=== PATIENT | female | born 1995 | race African-American/Black ===

== ENCOUNTER 2016-11-11 16:11 | Emergency (ER) | payer BC ==
[~2016-11-11] VITALS: Ht 154.9 cm; Wt 66.4 kg
[~2016-11-11 16:11] MED LIST: ACET-1256 PO; CIPR-255 PO; IBUP-1459 PO
[2016-11-11 16:20] VITALS: Ht 154.9 cm; Wt 66.4 kg
[2016-11-11] MEDS ORDERED: ONDANSETRON INJ 2 MG/ML 2 ML VIAL IV STA (17:41)
[2016-11-11] MEDS ORDERED: SODIUM CHLORIDE 0.9% 1000ML 1,000 ML IV STA (17:41)
[2016-11-11] MEDS ORDERED: ACETAMINOPHEN 500 MG TAB PO STA (17:41)
[2016-11-11] MEDS ORDERED: SODIUM CHLORIDE 0.9% 500ML 500 ML IV STA (17:41)
[2016-11-11] MEDS ORDERED: LORAZEPAM 2 MG/ML 1 ML VIAL IV STA (17:41)
[2016-11-11] MEDS ORDERED: AMPICILLIN/SULBACTAM SOD INJ 3,000 MG in SODIUM CHLORIDE 0.9% 100ML 100 ML IV ONE (17:45)
[2016-11-11] MEDS ORDERED: LIDO/EPINEPHRINE/SOD BICARB 20 ML VIAL INFIL ONE (17:45)
[2016-11-11] MEDS ORDERED: MoRPHine SULFATE 4 MG/ML 1 ML CARP\\VIAL IV PRN (17:45)
--- NOTE | 2016-11-11 17:51 | EMERGENCY ROOM VISIT NOTE ---
History Report prepared by Bennett: Reagan Garcia Under the Supervision of: Dr. Aakash Lance M.D. First contact with patient: 17:33 Chief Complaint: OTHER COMPLAINT Stated Complaint: SEVERE SWELLING History of Present Illness The patient is a 21 year old female who presents to the Emergency Room with complaints of a worsening pilonidal cyst beginning one week prior to arrival. She currently rates her discomfort as a 10/10 in severity. The patient associates an intermittent fever for four days with today's symptoms. She states she took Motrin three hours ago. The patient notes she has had this cyst for a couple of years, and the surgeon has said to wait for surgery. She denies her cyst ever being drained in the past. The patient denies the cyst draining over the past couple of days. She notes she was seen at a hospital in [place] three days ago, in which, she was prescribed Bactrim and Percocet. As per mother, the patient had blood work, a urinalysis, and a CT at the hospital. The patient denies kidney, liver, lung, or spleen problems. 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 A total of 10 systems reviewed and were otherwise negative. Past Medical & Surgical Surgical Problems: (1) S/P eye surgery (2) S/P removal of thyroid nodule Family History Cancer Diabetes mellitus FH: heart disease Hypertension Social History Smoking Status: Never Smoker Drug Use: none Marital Status: single Housing Status: lives with roommate Occupation Status: [employer] student Current/Historical Medications Scheduled Amoxicillin & Pot Clavulanate (Augmentin 875-125 mg), 875 MG PO BID Control Pills ( Control Pills), 1 TAB PO DAILY Sulfa/Trimethoprim (Bactrim Ds 800MG/160MG), 1 TAB PO BID Valacyclovir (Valtrex), 500 MG PO DAILY Scheduled PRN Ibuprofen Tab (Advil), 200 MG PO UD PRN for Pain or Fever Oxycodone/Acetaminophen 5MG/325MG (Percocet 5MG/325MG), 1 TABLET PO Q6H PRN for Moderate Pain Allergies Coded Allergies: No Known Allergies (Unverified , 01/13/16) Physical Exam Vital Signs Date Time Temp Pulse Resp B/P Pulse Ox O2 Delivery O2 Flow Rate FiO2 11/11/16 20:16 37.8 81 18 111/75 99 11/11/16 20:16 37.8 81 18 111/75 99 Room Air 11/11/16 18:17 84 18 109/72 11/11/16 16:20 38.2 145 20 110/69 99 Room Air Physical Exam GENERAL: Patient is in no acute distress. HEENT: No acute trauma, normocephalic atraumatic, mucous membranes moist, no nasal congestion, no scleral icterus. NECK: No stridor, no adenopathy, no meningismus, trachea is midline. LUNGS: Clear to auscultation bilaterally, no wheeze, no rhonchi, breath sounds equal. HEART: Mildly tachycardic without any murmurs. There is a regular rhythm. ABDOMEN: Soft, nontender, bowel sounds positive, no hernias, no peritonitis. BUTTOCK: Large midline pilonidal abscess. There is erythema, fluctuance, and tenderness. It is along the superior portion of the buttock crease. EXTREMITIES: No cyanosis or edema, full range of motion of all the joints without pain or difficulty, no signs for acute trauma. NEUROLOGIC: Oriented x 3, no acute motor or sensory deficits, no focal weakness. SKIN: No rash, no jaundice, no diaphoresis. Medical Decision & Procedures Laboratory Results 11/11/16 17:55 Red Blood Count 4.14, Mean Corpuscular Volume 87.2, Mean Corpuscular Hemoglobin 30.2, Mean Corpuscular Hemoglobin Concent 34.6, Mean Platelet Volume 10.3, Neutrophils (%) (Auto) 88.3, Lymphocytes (%) (Auto) 6.5, Monocytes (%) (Auto) 4.7, Eosinophils (%) (Auto) 0.1, Basophils (%) (Auto) 0.1, Neutrophils # (Auto) 13.76, Lymphocytes # (Auto) 1.01, Monocytes # (Auto) 0.74, Eosinophils # (Auto) 0.01, Basophils # (Auto) 0.02 11/11/16 17:55 Test 11/11/16 17:55 White Blood Count 15.59 K/uL (4.8-10.8) Red Blood Count 4.14 M/uL (4.2-5.4) Hemoglobin 12.5 g/dL (12.0-16.0) Hematocrit 36.1 % (37-47) Mean Corpuscular Volume 87.2 fL (80-100) Mean Corpuscular Hemoglobin 30.2 pg (25-34) Mean Corpuscular Hemoglobin Concent 34.6 g/dl (32-36) Platelet Count 299 K/uL (130-400) Mean Platelet Volume 10.3 fL (7.4-10.4) Neutrophils (%) (Auto) 88.3 % Lymphocytes (%) (Auto) 6.5 % Monocytes (%) (Auto) 4.7 % Eosinophils (%) (Auto) 0.1 % Basophils (%) (Auto) 0.1 % Neutrophils # (Auto) 13.76 K/uL (1.4-6.5) Lymphocytes # (Auto) 1.01 K/uL (1.2-3.4) Monocytes # (Auto) 0.74 K/uL (0.11-0.59) Eosinophils # (Auto) 0.01 K/uL (0-0.5) Basophils # (Auto) 0.02 K/uL (0-0.2) RDW Standard Deviation 41.5 fL (36.4-46.3) RDW Coefficient of Variation 12.9 % (11.5-14.5) Immature Granulocyte % (Auto) 0.3 % Immature Granulocyte # (Auto) 0.05 K/uL (0.00-0.02) Anion Gap 11.0 mmol/L (3-11) Est Creatinine Clear Calc Drug Dose 85.2 ml/min Estimated GFR () 104.5 Estimated GFR (Non- 90.2 BUN/Creatinine Ratio 8.3 (10-20) Calcium Level 9.0 mg/dl (8.5-10.1) Laboratory results reviewed by me. Medications Administered Medications (Trade) Dose Ordered Sig/Angeline Route Start Time Stop Time Status Last Admin Dose Admin Ampicillin Sodium/ Sulbactam Sodium 3000 mg/Sodium Chloride 108 ml @ 200 mls/hr ONE ONCE IV 11/11/16 17:45 11/11/16 18:17 DC 11/11/16 19:03 200 MLS/HR Sodium Chloride 500 ml @ 999 mls/hr Q31M STAT IV 11/11/16 17:41 11/11/16 18:11 DC 11/11/16 18:12 999 MLS/HR Sodium Chloride (Nss 1000ml) 1,000 ml @ 125 mls/hr Q8H STAT IV 11/11/16 17:41 11/11/16 21:36 DC 11/11/16 18:12 125 MLS/HR Acetaminophen (Tylenol Tab) 1,000 mg NOW STAT PO 11/11/16 17:41 11/11/16 17:45 DC 11/11/16 18:13 1,000 MG Lidocaine/ Epinephrine (Buffered Xylocaine/ Epinephrine 1% Inj) 20 ml NOW ONCE INFIL 11/11/16 17:45 11/11/16 17:46 DC 11/11/16 18:08 20 ML Morphine Sulfate (MoRPHine SULFATE INJ) 4 mg Q15M PRN IV 11/11/16 17:45 11/11/16 21:36 DC 11/11/16 18:07 4 MG Lorazepam (Ativan Inj) 0.5 mg NOW STAT IV 11/11/16 17:41 11/11/16 17:45 DC 11/11/16 18:16 0.5 MG Ondansetron HCl (Zofran Inj) 4 mg NOW STAT IV 11/11/16 17:41 11/11/16 17:45 DC 11/11/16 18:08 4 MG Oxycodone HCl (Roxicodone Immediate Rel 5MG Home Pack) 1 homepack UD ONCE PO 11/11/16 20:00 11/11/16 20:01 DC 11/11/16 20:15 1 HOMEPACK Procedure Incision & Drainage Indication: Abscess. Location: Buttock Verbal consent was obtained after the risks and benefits were explained, including but not limited to bleeding, scarring, infection, pain, and bone/joint /nerve damage. At this time, the risks of the procedure are less than the risks of NOT performing the procedure. A time out was taken and the correct patient and site identified. The skin was prepped with betadine and a sterile field set. The wound was anesthetized with 10 ccs ml of 1% lidocaine with epinephrine. The abscess cavity was entered with a number 11 blade and purulent , foul smelling material expressed. Copious irrigation was performed using saline. The wound was explored for loculations and none found. Debridement was not performed. Packing placed and a sterile dressing applied. Detailed wound care instructions and signs and symptoms of worsening infection reviewed with the patient. No complications and the patient tolerated the procedure well. ED Course 1735: The patient was evaluated in room C4. A complete history and physical exam was performed. 1740: Ordered Zofran Inj 4 mg IV, Ativan Inj 0.5 mg IV, Tylenol Tab 1,000 mg PO , Sodium Chloride 1,000 ml @ 125 mls/hr IV, Sodium Chloride 500 ml @ 999 mls/hr IV. 1744: Ordered Morphine Sulfate 4 mg IV, Lidocaine/Epinephrine 20 ml INFIL, Ampicillin Sodium/Sulbactam Sodium 3,000 mg/Sodium Chloride 108 ml @ 200 mls/hr IV. 1999: Ordered Oxycodone HCl 1 homepack PO. 2004: Reevaluated the patient. Discussed results and discharge instructions: She verbalized understanding and agreement. The patient is ready for discharge. Medical Decision The differential diagnoses include but are not limited to: dehydration, pilonidal abscess, cellulitis, perirectal abscess, failed outpatient treatment. There is a moderate leukocytosis which is consistent with infection. No concerning anemia. No significant electrolyte abnormality or kidney failure. On exam, the patient had a large pilonidal abscess. The patient received IV saline, IV Ativan, IV morphine and IV Zofran. She was given IV Unasyn. She received a dose of oral Tylenol. I was able to open the abscess without complication, a large amount of foul- smelling purulent material was expressed. Packing was applied. The patient is being discharged to continue her Bactrim, I have added Augmentin. A wound culture has been sent and is pending. The patient can return if worsening. She should return in 2 days for packing removal and recheck on the lesion. Impression Primary Impression: Pilonidal abscess Scribe Attestation The scribe's documentation has been prepared under my direction and personally reviewed by me in its entirety. I confirm that the note above accurately reflects all work, treatment, procedures, and medical decision making performed by me. Departure Information Dispostion Home / Self-Care Prescriptions Amoxicillin & Pot Clavulanate (Augmentin 875-125 mg) 1 Tab Tab 875 MG PO BID for 7 Days, #14 TAB Prov: Aakash Lance M.D. 11/11/16 Referrals No Doctor, Assigned (PCP) Forms HOME CARE DOCUMENTATION FORM, IMPORTANT VISIT INFORMATION, WORK / SCHOOL INSTRUCTIONS Patient Instructions A Signature Page, My [facility] [employer] Additional Instructions continue the bactrim add augmentin 2x per day for 1 week warm salt water soaks or sitz baths 3x per day packing to removed and the area rechecked in 2 days--either here or S return for worsening symptoms or lack of improvement otc pain meds oxy ir 1 tab every 4 hours for severe pain
[2016-11-11 18:12] LABS: BASO % 0.1 %; BASO ABS # 0.02 K/uL (0-0.2); COMPLETE YES; EOS % 0.1 %; HEMATOCRIT 36.1 % (37-47); IG% 0.3 %; LYMPH % 6.5 %; LYMPH ABS # 1.01 K/uL (1.2-3.4); MEAN CELL VOLUME 87.2 fL (80-100); MEAN CORPUSCULAR HEMOGLOBIN 30.2 pg (25-34); MEAN CORPUSCULAR HGB CONC 34.6 g/dl (32-36); MEAN PLATELET VOLUME 10.3 fL (7.4-10.4); MONO % 4.7 %; NEUT % 88.3 %; PLATELET COUNT 299 K/uL (130-400); RED BLOOD COUNT 4.14 M/uL (4.2-5.4); WHITE BLOOD COUNT 15.59 K/uL (4.8-10.8)
[2016-11-11 18:30] LABS: BUN/CREATININE RATIO 8.3 (10-20); CREATININE 0.91 mg/dl (0.60-1.20); POTASSIUM 3.2 mmol/L (3.5-5.1)
[2016-11-11] MEDS ORDERED: AMOX875T PO (19:26)
[2016-11-11] MEDS ORDERED: OXYCODONE IR HOME PACK PO ONE (20:00)
[2016-11-11 20:16] VITALS: BP 111/75; PULSE 81; TEMP 37.8; O2SAT 99
[2016-11-13] MEDS ORDERED: VALA500T60 PO (13:19)
== END 2016-11-11 20:17 | disposition home or self-care (01) ==
LOC: C.EDB 16:12 → C.EDC 20:17
DX: L05.01 Pilonidal cyst with abscess (principal); Z83.3 Family history of diabetes mellitus; Z82.49 Family history of ischemic heart disease and other diseases of the circulatory system

== ENCOUNTER 2016-11-13 15:23 | Emergency (ER) | payer BC ==
[~2016-11-13] VITALS: Ht 160 cm; Wt 64.2 kg
[~2016-11-13 15:23] MED LIST changes: -ACET-1256 PO; +AMOX875T PO; -CIPR-255 PO; -IBUP-1459 PO; +VALA500T60 PO
[2016-11-13 15:29] VITALS: BP 116/67; PULSE 103; TEMP 37; O2SAT 97; Ht 160 cm; Wt 64.2 kg
[2016-11-13] MEDS ORDERED: OXYC-57 PO ×2 (15:43→17:45)
--- NOTE | 2016-11-13 15:44 | EMERGENCY ROOM VISIT NOTE ---
ED Visit Note First contact with patient: 15:31 CHIEF COMPLAINT: Wound check HISTORY OF PRESENT ILLNESS: This 21-year-old female patient presents to the emergency department ambulatory for a recheck and packing removal of a pilonidal abscess. The patient states her pain has improved overall but she still reports some discomfort. Previous care outlined has been followed without difficulty. REVIEW OF SYSTEMS: A 6 system review of systems was completed with positives and pertinent negatives listed in the HPI. ALLERGIES: No known drug allergies MEDICATIONS: Unchanged from previous PMH: Unchanged from previous visit. PHYSICAL EXAM: Vital Signs reviewed, see Nurse's notes. Patient is afebrile, vital signs stable. GENERAL: This is a 21-year-old female, awake, alert, well appearing, no acute distress MUSCULOSKELETAL: Inspection of the gluteal cleft reveals a packed wound. SKIN: No sign of cellulitis or abscess. NEURO: No sensory or motor deficits noted. EMERGENCY DEPARTMENT COURSE AND DECISION MAKING: I examined the patient. The packing was easily removed. A marked amount of material was expressed with light pressure. The patient tolerated this well but did have some discomfort. She will be given a small prescription for pain medication. She should continue the antibiotics. She plans to follow-up with a surgeon when she returns home. Discharge instructions reviewed. Discharged in stable condition. Problem List Surgical Problems: (1) S/P eye surgery Status: Resolved (2) S/P removal of thyroid nodule Status: Resolved Current/Historical Medications Scheduled Amoxicillin & Pot Clavulanate (Augmentin 875-125 mg), 875 MG PO BID Control Pills ( Control Pills), 1 TAB PO DAILY Sulfa/Trimethoprim (Bactrim Ds 800MG/160MG), 1 TAB PO BID Valacyclovir (Valtrex), 500 MG PO DAILY Scheduled PRN Ibuprofen Tab (Advil), 200 MG PO UD PRN for Pain or Fever Oxycodone/Acetaminophen 5MG/325MG (Percocet 5MG/325MG), 1 TABLET PO Q6H PRN for Moderate Pain Oxycodone/Acetaminophen 5MG/325MG (Percocet 5MG/325MG), 1 TAB PO Q6 PRN for Pain Allergies Coded Allergies: No Known Allergies (Unverified , 01/13/16) Vital Signs Date Time Temp Pulse Resp B/P Pulse Ox O2 Delivery O2 Flow Rate FiO2 11/13/16 15:29 37.0 103 20 116/67 97 Room Air Departure Information Impression Primary Impression: Abscess packing removal Dispostion Home / Self-Care Condition GOOD Prescriptions Oxycodone/Acetaminophen 5MG/325MG (PERCOCET 5MG/325MG) Tab 1 TAB PO Q6 Y for Pain, #10 TAB For Initial Treatment Prov: Janee Goddard PA-C 11/13/16 Referrals Jim Campos DO (PCP) Patient Instructions [facility] Additional Instructions Percocet 1-2 tablet every 4-6 hours as needed for worse pain. No driving or alcohol use with Percocet and do not take with Tylenol. Keep the area clean and dry Finished the antibiotics as prescribed Return with worsening symptoms Follow-up with a general surgeon when you return home
[2016-11-13] MEDS ORDERED: SULF800T23 PO (17:45)
[2016-11-13] MEDS ORDERED: IBUP-103 PO (18:03)
[2016-11-13] MEDS ORDERED: BCPILLS PO (21:40)
== END 2016-11-13 16:07 | disposition home or self-care (01) ==
LOC: C.EDB 15:25 → C.EDD 16:07
DX: L02.31 Cutaneous abscess of buttock (principal); Z48.00 Encounter for change or removal of nonsurgical wound dressing